=== PATIENT | male | born 1940 | race Caucasian/White ===

== ENCOUNTER → 2016-11-09 | Outpatient (CLI) | payer MEDICARE, OTHER | LOC: GMAL 11:06 | PROVIDERS: ATTEND Family Medicine | DX: N39.0 Urinary tract infection, site not specified (principal) ==

== ENCOUNTER → 2016-12-27 | Outpatient (CLI) | payer MEDICARE, OTHER ==
--- NOTE | 2016-12-28 11:52 | US ---
Procedure: US CAROTID DOPPLER BILATERAL Exam Date: 12/27/2016 Ordering Provider: ZACH COSTELLO Clinical Indication: CAROTID STENOSIS Comparison: None TECHNIQUE : Real-time cerebrovascular ultrasonography was obtained from sternal notch to the angle of the mandible bilaterally utilizing billingsley scale, color flow and spectral Doppler analysis. Systolic velocity ratios were calculated for internal carotid artery to common carotid artery bilaterally. FINDINGS: RIGHT CAROTID BIFURCATION: Mild atherosclerotic plaque. Peak systolic and end-diastolic velocities in the right internal carotid artery are 69 and 21 cm/s. Internal carotid/common carotid ratio is 1.1. Right vertebral flow is antegrade. LEFT CAROTID BIFURCATION: Mild atherosclerotic plaque. Peak systolic and end-diastolic velocities in the left internal carotid artery are 68 and 17 cm/s. Internal carotid/common carotid ratio is 0.7. Left vertebral flow is antegrade. IMPRESSION: 1. Mild atherosclerotic plaque in each carotid bulb and ICA origin. 2. There is no significant stenosis (less than 50%) at either ICA origin. 3. Bilateral antegrade vertebral artery flow. Electronically signed by: Saravanan Cedillo MD 12/28/2016 11:51 AM CDT
== END ==
LOC: US 10:56
PROVIDERS: ATTEND Family Medicine
DX: I65.23 Occlusion and stenosis of bilateral carotid arteries (principal)

== ENCOUNTER → 2017-01-29 | Outpatient (CLI) | payer MEDICARE, OTHER | LOC: GMAL 14:43 | PROVIDERS: ATTEND Family Medicine | DX: D51.3 Other dietary vitamin B12 deficiency anemia (principal); E55.9 Vitamin D deficiency, unspecified; I10 Essential (primary) hypertension; Z12.5 Encounter for screening for malignant neoplasm of prostate | CPT/HCPCS: 82306; 82607; G0103 ==

== ENCOUNTER → 2017-07-19 | Outpatient (CLI) | payer MEDICARE, OTHER | END | disposition home or self-care (01) | LOC: GMAL 10:42 | PROVIDERS: ATTEND Family Medicine | DX: R53.82 Chronic fatigue, unspecified (principal); D51.3 Other dietary vitamin B12 deficiency anemia ==

== ENCOUNTER → 2018-01-03 | Outpatient (CLI) | payer MEDICARE, OTHER ==
--- NOTE | 2018-01-03 11:27 | RAD ---
EXAM DESCRIPTION: Hip,Right 2 Views CLINICAL HISTORY: 77 years Male, HIP PAIN COMPARISON: None available. FINDINGS: The visualized bones are well-mineralized.No acute fracture or dislocation. Mild right hip osteoarthritis. Enthesopathy changes are noted along the greater trochanter. The soft tissues appear grossly unremarkable. IMPRESSION: Mild right hip osteoarthritis. Electronically signed by: Crystal Ybarra MD 01/03/2018 11:26 AM CDT
--- NOTE | 2018-01-03 11:28 | RAD ---
EXAM DESCRIPTION: Pelvis CLINICAL HISTORY: 77 years Male, PELVIC PAIN COMPARISON: None. TECHNIQUE: AP radiograph of the pelvis was performed. FINDINGS: The pelvic ring appears grossly intact on this single AP radiograph. No acute fracture or dislocation. Bilateral sacroiliac joints appear normal. Mild bilateral hip osteoarthritis. The visualized lumbo-sacral spine demonstrates mild degenerative changes. IMPRESSION: Mild bilateral hip osteoarthritis. Intact pelvic ring. Electronically signed by: Crystal Ybarra MD 01/03/2018 11:27 AM CDT
== END ==
LOC: RAD 09:22
PROVIDERS: ATTEND Orthopaedic Surgery
DX: M25.551 Pain in right hip (principal); M16.0 Bilateral primary osteoarthritis of hip

== ENCOUNTER → 2018-02-14 | Outpatient (CLI) | payer MEDICARE, OTHER ==
--- NOTE | 2018-02-14 22:55 | MRI ---
MRI right hip without contrast INDICATION: Hip pain sciatic nerve lesion TECHNIQUE: Noncontrast MR imaging right hip FINDINGS: Moderate right greater trochanteric bursitis. Prominent vessels along the right sciatic nerve but no focal mass noted. Mild osteoarthrosis of both hips. No evidence of mass along the intrapelvic course of the sciatic nerve or lumbar plexus. Mild degenerative change L5-S1 disc. Tendinopathy of the gluteal tendons without rupture or retraction. Diffuse degenerative tears of the right acetabular labrum with small cysts and posterior superior acetabulum. Interstitial partial tears of the gluteus minimus and medius tendons moderate. IMPRESSION: Interstitial tendinosis and partial tears of the gluteal tendons Moderate right greater trochanteric bursitis Mild osteoarthrosis of both hips Diffuse degenerative tear right acetabular labrum Degenerative disc disease lower lumbar spine Electronically signed by: Sebastián Epstein MD 02/14/2018 10:54 PM CDT
--- NOTE | 2018-02-15 11:06 | MRI ---
MRI lumbar spine without contrast INDICATION: Lesion of the sciatic nerve right lower limb pain TECHNIQUE: Noncontrast MR imaging lumbar spine FINDINGS: Conus terminates at the T12 level. T12-L1: Disc desiccation otherwise negative L1-L2: Mild bilateral degenerative facet hypertrophy. No central or foraminal stenosis. L2-L3: Advanced degenerative disc disease. Degenerative Modic endplate changes. Moderate bilateral degenerative facet hypertrophy and bilateral ligamentum flavum thickening. Mild bilateral right greater than left lateral recess narrowing. No high-grade central stenosis. No high-grade foraminal stenosis. Asymmetric protrusion inferior aspect) L3-L4: Moderate bilateral degenerative facet hypertrophy and ligamentum flavum thickening. 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 No high-grade stenosis. Small perineural cyst or diverticulum in the left neural foramen. Mild bilateral lateral recess narrowing. L4-L5: Advanced bilateral degenerative facet arthrosis. Bilateral ligamentum flavum thickening. Mild bilateral foraminal encroachment. Degenerative disc disease with Modic endplate changes. No high-grade central stenosis. L5-S1: Diffuse moderate degenerative disc disease. Diffuse annular bulging. Small midline protrusion without stenosis. IMPRESSION: Multilevel degenerative disc disease and facet spondylosis Mild central stenosis L2-3 and L3-4 Asymmetric protrusion inferior aspect right L2 foramen without root displacement or impingement. No major spondylolisthesis or pars defects. Electronically signed by: Sebastián Epstein MD 02/15/2018 11:04 AM CDT
== END ==
LOC: MRI 13:00
PROVIDERS: ATTEND Orthopaedic Surgery
DX: G57.01 Lesion of sciatic nerve, right lower limb (principal); M25.559 Pain in unspecified hip; M51.36 Other intervertebral disc degeneration, lumbar region

== ENCOUNTER → 2018-04-30 | Outpatient (CLI) | payer MEDICARE, OTHER ==
--- NOTE | 2018-04-30 12:15 | MRI ---
EXAM DESCRIPTION: Lumbar Spine w/o Contrast : Magnetic Resonance Imaging. CLINICAL HISTORY: INTERVERTEBRAL DISC DISORDER W/ RADICULOPATHY COMPARISON: MRI scan lumbar spine 02/14/2018. TECHNIQUE: Multiplanar, multiple standard sequences, non contrast MRI, lumbar spine. FINDINGS: L5-S1: Disc desiccation with disc space preserved. Anterior Modic type II endplate reactive changes. Posterior midline bulge 4 mm. 2 mm grade 1 anterolisthesis. Bilateral moderate foraminal narrowing more right than left. Minimal flavum ligament hypertrophy. Moderate canal narrowing. Minimal arthrosis of the right facet. L4-5: Disc desiccation and minimal disc space loss. Minimal anterior Modic type II endplate reactive changes with bilateral Modic type II changes more left than right. Borderline right foraminal stenosis and mild to moderate left foraminal narrowing. Borderline mild central canal stenosis. Bilateral mild facet arthrosis and bilateral flavum ligament hypertrophy. Stable since the prior study. Superior and inferior endplates Schmorl's nodes. L3-4: Disc desiccation and posterior disc space narrowing. Anterior disc bulge and endplate spurs. Moderate facet arthrosis and flavum ligament hypertrophy posteriorly, moderate central canal stenosis. Bilateral moderate foraminal narrowing more severe on the left. L2-3: Disc desiccation and minimal disc space loss with anterior bulging and endplate ridging. Modic type II endplate focal reaction superior and inferiorly with Schmorl's node formation. Posterior disc osteophyte complex bulge in the midline 4 mm impressing on the thecal sac. Minimal flavum ligament hypertrophy. Mild to moderate central canal stenosis. Minimal disc bulge into the bilateral foramina more on the right with mild narrowing bilaterally. L1-2: Normal disc signal with disc space preserved. Canal and foramina are patent. T12-L1: Minimal desiccation with disc space preserved. Posterior elements unremarkable. Canal and foramina are patent. Conus terminates at this level. Trace method lumbar levoscoliosis. Reduced lumbar lordosis. Paravertebral soft tissues negative.. Otherwise normal marrow signal in the remaining vertebral bodies and the posterior elements. Vertebral bodies are not compressed at any level. IMPRESSION: 1. Posterior midline bulge of the L5-S1 disc with anterolisthesis canal narrowing and bilateral foraminal narrowing but no definite impingement. 2. Bilateral moderate spondylosis at L4-5 more severe on the left with borderline right foraminal stenosis. Borderline mild central canal stenosis. Stable since the prior study. 3. Spondylosis at L2-3 with disc desiccation and mild to moderate central canal stenosis. No change since the prior study. 4. Moderate bilateral foraminal narrowing L3-4 more advanced on the left. Moderate central canal stenosis. Stable since the prior study. Electronically signed by: Jean Pierre Yan MD 04/30/2018 12:14 PM CDT
== END ==
LOC: MRI 10:00
PROVIDERS: ATTEND Psychiatry & Neurology Neurology
DX: M51.16 Intervertebral disc disorders with radiculopathy, lumbar region (principal)

== ENCOUNTER → 2019-04-24 | Outpatient (CLI) | payer MEDICARE, OTHER ==
--- NOTE | 2019-04-25 16:25 | US ---
EXAM DESCRIPTION: 3D Diagnostic, Bilateral (accession [id number]), Breast,Bilateral (accession [id number]): Ultrasound CLINICAL HISTORY: 78 yearsMaleLocalized swelling, mass and lump, unspecified patient felt tenderness and itching bilateral nipples. Bilateral enlargement but more on the left. Patient taking spironolactone for high blood pressure. Lifetime risk of developing breast cancer (Tyrer-Cuzick model)(%): Not calculated due to male breast. COMPARISON: Baseline study. TECHNIQUE: Bilateral LM, CC, MLO projection full-field images, digital mammographic tomosynthesis technique. Bilateral 2-D digital full-field images. LM, CC, and MLO CAD not utilized. . Transcutaneous scanning of the bilateral breasts utilizing billingsley-scale and Doppler modes. Scanning performed by the tax compliance officer and Dr. Yan. FINDINGS: The breast parenchymal density pattern is: Scattered areas of fibroglandular density. No skin thickening or nipple retraction densest tissue in the retroareolar left breast compared to the right. The decrease in fibroglandular tissues is More superior to the right nipple. No focal, stellate mass or density, focal asymmetry , and no suspicious microcalcifications bilaterally. Ultrasound: Scanning retroareolar bilateral breast tissue. The hypoechoic ill-defined tissue usually seen with gynecomastia is visualized bilaterally, occupying a larger region in the retroareolar right breast compared to the left. No dominant solid mass or distinct cyst. No parenchymal edema or large calcifications. IMPRESSION: Benign exam. Bilateral gynecomastia, increased on the right compared to the left. BIRAD CATEGORY: 2 BENIGN FINDINGS. No suspicious or significant clinical findings. RECOMMENDATIONS: FOLLOW UP: The region of interest should be followed on clinical grounds, and if noted to change in size or character, a targeted/directed follow-up on US examination may be performed. Written communication explaining the IMPRESSION and follow-up, will be mailed to the patient and referring health care provider. The FINDINGS and the FOLLOW-UP plan were reviewed in person with the patient after the examination. According to the [employer], yearly mammograms are recommended starting at age 40 and continuing as long as a woman is in good health. Any breast change noted on a breast self-exam should be reported promptly to the patient's healthcare provider. Breast MRI is recommended for women with an approximately 20-25% or greater lifetime risk of breast cancer, including women with a strong family history of breast or ovarian cancer and women who have been treated for Hodgkin's disease. A negative mammographic report should not delay tissue diagnosis in patients with significant clinical history or physical findings. Extremely dense breast tissue limits the sensitivity of digital mammography. Electronically signed by: Jean Pierre Yan MD 04/25/2019 4:23 PM CDT
== END ==
LOC: MAMMO 09:00
PROVIDERS: ATTEND Family Medicine
DX: N62 Hypertrophy of breast (principal)
CPT/HCPCS: 76641; 77066; G0279

== ENCOUNTER → 2019-07-01 | Outpatient (CLI) | payer MEDICARE, OTHER | LOC: GMAL 14:28 | PROVIDERS: ATTEND Family Medicine | DX: D51.3 Other dietary vitamin B12 deficiency anemia (principal); E29.1 Testicular hypofunction; I10 Essential (primary) hypertension; R53.83 Other fatigue ==

== ENCOUNTER → 2019-08-14 | Outpatient (CLI) | payer MEDICARE, OTHER | LOC: GMAL 10:22 | PROVIDERS: ATTEND Family Medicine | DX: D51.3 Other dietary vitamin B12 deficiency anemia (principal); D53.9 Nutritional anemia, unspecified; E29.1 Testicular hypofunction; R30.0 Dysuria; Z79.899 Other long term (current) drug therapy ==